=== PATIENT | female | born 1960 | race Caucasian/White ===

== ENCOUNTER 2024-12-25 05:07 | Inpatient (IN) ==
[2024-12-25] MEDS ORDERED: IOPAMIDOL 100 ML BOTTLE IV ONE (05:08)
[2024-12-25] MEDS: 0.9 % SODIUM CHLORIDE 1,000 ML IV ONE (06:04)
[2024-12-25] MEDS: KETOROLAC 30 MG/ML VIAL IV ONE (06:05)
[2024-12-25] MEDS: ONDANSETRON 4 MG/2 ML VIAL IV ONE (06:05)
[2024-12-25 06:08] LABS: Basophils # (Auto) 0.03 K/mcL (0.00-0.30); Basophils % (Auto) 0.4 % (0.0-2.0); Eosinophils # (Auto) 0.19 K/mcL (0.00-0.70); Eosinophils % (Auto) 2.7 % (0.0-7.0); Hematocrit 43.9 % (34.1-44.9); Hemoglobin 14.5 g/dL (11.2-15.7); Lymphocytes # (Auto) 2.13 K/mcL (1.50-4.80); Lymphocytes % (Auto) 30.4 % (15.5-49.0); Mean Corpuscular HGB Conc 33.0 g/dL (31.0-36.0); Monocytes # (Auto) 1.00 K/mcL (0.10-0.90); Monocytes % (Auto) 14.3 % (1.0-12.0); Neutrophils % (Auto) 51.9 % (38.0-78.0); Platelet Count 295 K/mcL (140-440); RBC 4.40 M/mcL (3.59-5.38); WBC 7.0 K/mcL (4.5-11.0)
[2024-12-25 06:18] LABS: ALT/SGPT 19 U/L (<40); AST/SGOT 24 U/L (<32); Albumin 3.8 gm/dL (3.2-5.2); Albumin/Globulin Ratio 1.6 (1.0-2.3); Alkaline Phosphatase 68 U/L (39-117); Anion Gap 11.0 (8.0-16.0); Bilirubin,Total 0.5 mg/dL (0.1-1.0); Blood Urea Nitrogen 12 mg/dL (8-23); Calcium 9.1 mg/dL (8.6-10.4); Carbon Dioxide 26 mmol/L (22-30); Chloride 105 mmol/L (96-108); Globulin 2.4 gm/dL (2.2-3.7); Glucose 107 mg/dL (70-105); Potassium 3.7 mmol/L (3.3-5.1); Sodium 142 mmol/L (133-145)
[2024-12-25 06:53] LABS: Bacteria,Urine Mod /hpf (0); Bilirubin,Urine Negative (Negative); Color,Urine Yellow; Glucose,Urine (UA) Negative (Negative); Ketones,Urine 15 mg/dL (Negative); Leukocyte Esterase,Urine Small /uL (Negative); Mucus,Urine Few /hpf; PH,Urine 6.0 (5.0-9.0); Protein,Urine 30 mg/dL (Negative); Specific Gravity,Urine 1.025 (1.000-1.035); Urobilinogen,Urine Normal
[2024-12-25] MEDS ORDERED: ACETAMINOPHEN 325 MG TABLET PO PRN (07:35)
[2024-12-25] MEDS: LACTATED RINGERS 1,000 ML IV SCH ×2 (08:36→17:26)
[2024-12-25 08:56] LABS: INR 1.0 (0.9-1.1); Prothrombin Time 13.4 sec (11.9-14.5)
[2024-12-25] MEDS ORDERED: ROPIVACAINE HCL/PF 30 ML VIAL IJ ONE (13:42)
[2024-12-25] MEDS ORDERED: PROPOFOL 200 MG/20 ML VIAL IV ONE (14:19)
[2024-12-25] MEDS ORDERED: LIDOCAINE 2% PF 5 ML VIAL ONE (14:20)
[2024-12-25] MEDS ORDERED: MIDAZOLAM 2 MG/2 ML VIAL ONE (14:20)
[2024-12-25] MEDS ORDERED: fentaNYL 100 MCG/2 ML VIAL ONE (14:20)
[2024-12-25] MEDS ORDERED: DEXAMETHASONE 10 MG/ML VIAL ONE (14:20)
[2024-12-25] MEDS ORDERED: ROCURONIUM 10 MG/ML ML IV ONE (14:20)
[2024-12-25] MEDS ORDERED: ONDANSETRON 4 MG/2 ML VIAL ONE (14:20)
[2024-12-25] MEDS: CEFEPIME 2 GM VIAL IV ONE (14:46)
[2024-12-25] MEDS ORDERED: SUGAMMADEX SODIUM 200 MG/2 ML VIAL IV ONE (16:03)
[2024-12-25] MEDS ORDERED: fentaNYL 100 MCG/2 ML VIAL IV PRN (16:21)
[2024-12-25] MEDS ORDERED: IPRATROPIUM/ALBUTEROL 3 ML AMPUL.NEB NEB PRN (16:21)
[2024-12-25] MEDS ORDERED: DROPERIDOL 5 MG/2 ML VIAL IV PRN (16:21)
[2024-12-25] MEDS: KETOROLAC 30 MG/ML VIAL IV PRN (16:55)
[2024-12-25] MEDS: HYDROmorphone 0.5 MG/0.5 ML SYRINGE IV PRN (16:55)
[2024-12-25] MEDS: METOCLOPRAMIDE 10 MG/2 ML VIAL IV SCH (17:40)
[2024-12-25] MEDS: ACETAMINOPHEN 1,000 MG/100 ML BAG IV SCH (17:40)
[2024-12-25] MEDS: metroNIDAZOLE 500 MG/100 ML BAG IV SCH (18:29)
[2024-12-25] MEDS: CEFEPIME 2 GM VIAL IV SCH (23:23)
[2024-12-26] MEDS: HYDROmorphone 0.5 MG/0.5 ML SYRINGE IV PRN (05:51)
[2024-12-26 06:08] LABS: Basophils # (Auto) 0.02 K/mcL (0.00-0.30); Basophils % (Auto) 0.2 % (0.0-2.0); Eosinophils # (Auto) 0.04 K/mcL (0.00-0.70); Eosinophils % (Auto) 0.3 % (0.0-7.0); Hematocrit 37.0 % (34.1-44.9); Hemoglobin 12.0 g/dL (11.2-15.7); Lymphocytes # (Auto) 1.64 K/mcL (1.50-4.80); Lymphocytes % (Auto) 12.5 % (15.5-49.0); Mean Corpuscular HGB Conc 32.4 g/dL (31.0-36.0); Monocytes # (Auto) 1.02 K/mcL (0.10-0.90); Monocytes % (Auto) 7.8 % (1.0-12.0); Neutrophils % (Auto) 79.0 % (38.0-78.0); Platelet Count 242 K/mcL (140-440); RBC 3.64 M/mcL (3.59-5.38); WBC 13.1 K/mcL (4.5-11.0)
[2024-12-26 06:27] LABS: ALT/SGPT 27 U/L (<40); AST/SGOT 43 U/L (<32); Albumin 3.1 gm/dL (3.2-5.2); Albumin/Globulin Ratio 1.7 (1.0-2.3); Alkaline Phosphatase 71 U/L (39-117); Anion Gap 11.0 (8.0-16.0); Bilirubin,Direct 0.2 mg/dL (<0.3); Bilirubin,Total 0.5 mg/dL (0.1-1.0); Blood Urea Nitrogen 10 mg/dL (8-23); Calcium 8.1 mg/dL (8.6-10.4); Carbon Dioxide 23 mmol/L (22-30); Chloride 106 mmol/L (96-108); Globulin 1.8 gm/dL (2.2-3.7); Glucose 71 mg/dL (70-105); Phosphorous 3.3 mg/dL (2.5-4.5); Potassium 3.5 mmol/L (3.3-5.1); Sodium 140 mmol/L (133-145); Triglycerides 70 mg/dL (<150); Uric Acid 3.5 mg/dL (2.5-8.0)
[2024-12-26] MEDS: ONDANSETRON 4 MG/2 ML VIAL IV PRN (19:42)
[2024-12-26] MEDS: BENZOCAINE ONE 20% 1 SPRAY TOPICAL PRN (20:13)
[2024-12-27 06:09] LABS: ALT/SGPT 74 U/L (<40); AST/SGOT 96 U/L (<32); Albumin 3.2 gm/dL (3.2-5.2); Albumin/Globulin Ratio 1.5 (1.0-2.3); Alkaline Phosphatase 115 U/L (39-117); Anion Gap 15.0 (8.0-16.0); Bilirubin,Direct 0.2 mg/dL (<0.3); Bilirubin,Total 0.5 mg/dL (0.1-1.0); Blood Urea Nitrogen 8 mg/dL (8-23); Calcium 8.5 mg/dL (8.6-10.4); Carbon Dioxide 23 mmol/L (22-30); Chloride 102 mmol/L (96-108); Globulin 2.1 gm/dL (2.2-3.7); Glucose 61 mg/dL (70-105); Phosphorous 2.6 mg/dL (2.5-4.5); Potassium 3.0 mmol/L (3.3-5.1); Sodium 140 mmol/L (133-145); Triglycerides 72 mg/dL (<150); Uric Acid 3.9 mg/dL (2.5-8.0)
[2024-12-27 08:06] LABS: Basophils # (Auto) 0.03 K/mcL (0.00-0.30); Basophils % (Auto) 0.3 % (0.0-2.0); Eosinophils # (Auto) 0.35 K/mcL (0.00-0.70); Eosinophils % (Auto) 3.2 % (0.0-7.0); Hematocrit 39.1 % (34.1-44.9); Hemoglobin 12.6 g/dL (11.2-15.7); Lymphocytes # (Auto) 1.44 K/mcL (1.50-4.80); Lymphocytes % (Auto) 13.1 % (15.5-49.0); Mean Corpuscular HGB Conc 32.2 g/dL (31.0-36.0); Monocytes # (Auto) 1.04 K/mcL (0.10-0.90); Monocytes % (Auto) 9.5 % (1.0-12.0); Neutrophils % (Auto) 73.4 % (38.0-78.0); Platelet Count 243 K/mcL (140-440); RBC 3.85 M/mcL (3.59-5.38); WBC 11.0 K/mcL (4.5-11.0)
[2024-12-27] MEDS: POTASSIUM CHLORIDE 40 MEQ in DEXTROSE 5% IN WATER 500 ML IV ONE (19:16)
[2024-12-27] MEDS: POTASSIUM CHLORIDE 20 MEQ/10 ML VIAL IV ONE (19:59)
[2024-12-28] MEDS: POTASSIUM CHLORIDE 40 MEQ in DEXTROSE 5% IN WATER 500 ML IV ONE (00:53)
[2024-12-28] MEDS: POTASSIUM CHLORIDE 20 MEQ/10 ML VIAL IV ONE (01:22)
[2024-12-28 05:53] LABS: Basophils # (Auto) 0.02 K/mcL (0.00-0.30); Basophils % (Auto) 0.2 % (0.0-2.0); Eosinophils # (Auto) 0.38 K/mcL (0.00-0.70); Eosinophils % (Auto) 3.7 % (0.0-7.0); Hematocrit 37.3 % (34.1-44.9); Hemoglobin 12.1 g/dL (11.2-15.7); Lymphocytes # (Auto) 1.42 K/mcL (1.50-4.80); Lymphocytes % (Auto) 13.8 % (15.5-49.0); Mean Corpuscular HGB Conc 32.4 g/dL (31.0-36.0); Monocytes # (Auto) 1.00 K/mcL (0.10-0.90); Monocytes % (Auto) 9.7 % (1.0-12.0); Neutrophils % (Auto) 72.4 % (38.0-78.0); Platelet Count 283 K/mcL (140-440); RBC 3.65 M/mcL (3.59-5.38); WBC 10.3 K/mcL (4.5-11.0)
[2024-12-28 06:16] LABS: ALT/SGPT 50 U/L (<40); AST/SGOT 44 U/L (<32); Albumin 3.0 gm/dL (3.2-5.2); Albumin/Globulin Ratio 1.4 (1.0-2.3); Alkaline Phosphatase 102 U/L (39-117); Anion Gap 10.0 (8.0-16.0); Bilirubin,Direct 0.2 mg/dL (<0.3); Bilirubin,Total 0.4 mg/dL (0.1-1.0); Blood Urea Nitrogen 6 mg/dL (8-23); Calcium 8.3 mg/dL (8.6-10.4); Carbon Dioxide 25 mmol/L (22-30); Chloride 100 mmol/L (96-108); Globulin 2.1 gm/dL (2.2-3.7); Glucose 180 mg/dL (70-105); Phosphorous 1.1 mg/dL (2.5-4.5); Potassium 3.3 mmol/L (3.3-5.1); Sodium 135 mmol/L (133-145); Triglycerides 77 mg/dL (<150); Uric Acid 4.3 mg/dL (2.5-8.0)
[2024-12-28] MEDS ORDERED: HYDROCORTISONE CRM 1% TUBE 30GM TOPICAL PRN (17:42)
[2024-12-28] MEDS: POTASSIUM PHOSPHATE 66 MEQ/15 ML VIAL IV ONE ×2 (19:15→20:06)
[2024-12-28] MEDS: POTASSIUM PHOSPHATE 40 MEQ in DEXTROSE 5% IN WATER 500 ML IV SCH (19:27)
[2024-12-29 06:06] LABS: Basophils # (Auto) 0.03 K/mcL (0.00-0.30); Basophils % (Auto) 0.5 % (0.0-2.0); Eosinophils # (Auto) 0.36 K/mcL (0.00-0.70); Eosinophils % (Auto) 6.1 % (0.0-7.0); Hematocrit 29.3 % (34.1-44.9); Hemoglobin 9.7 g/dL (11.2-15.7); Lymphocytes # (Auto) 1.04 K/mcL (1.50-4.80); Lymphocytes % (Auto) 17.5 % (15.5-49.0); Mean Corpuscular HGB Conc 33.1 g/dL (31.0-36.0); Monocytes # (Auto) 0.74 K/mcL (0.10-0.90); Monocytes % (Auto) 12.5 % (1.0-12.0); Neutrophils % (Auto) 63.2 % (38.0-78.0); Platelet Count 242 K/mcL (140-440); RBC 2.90 M/mcL (3.59-5.38); WBC 5.9 K/mcL (4.5-11.0)
[2024-12-29 06:28] LABS: ALT/SGPT 29 U/L (<40); AST/SGOT 28 U/L (<32); Albumin 2.3 gm/dL (3.2-5.2); Albumin/Globulin Ratio 1.8 (1.0-2.3); Alkaline Phosphatase 69 U/L (39-117); Anion Gap 11.0 (8.0-16.0); Bilirubin,Direct < 0.2 mg/dL (0-0.3); Bilirubin,Total 0.3 mg/dL (0.1-1.0); Blood Urea Nitrogen 2 mg/dL (8-23); Calcium 6.1 mg/dL (8.6-10.4); Carbon Dioxide 23 mmol/L (22-30); Chloride 105 mmol/L (96-108); Globulin 1.3 gm/dL (2.2-3.7); Glucose 107 mg/dL (70-105); Phosphorous 5.7 mg/dL (2.5-4.5); Potassium 2.9 mmol/L (3.3-5.1); Sodium 139 mmol/L (133-145); Triglycerides 61 mg/dL (<150); Uric Acid 2.5 mg/dL (2.5-8.0)
[2024-12-29] MEDS: POTASSIUM CHLORIDE 20 MEQ TABLET PO SCH (18:25)
[2024-12-29] MEDS: MAGNESIUM SULFATE 2 GM/50 ML BAG IV ONE (20:23)
[2024-12-29] MEDS: POTASSIUM CHLORIDE 40 MEQ in DEXTROSE 5% IN WATER 500 ML IV SCH (20:23)
[2024-12-29] MEDS: MAGNESIUM SULFATE 4 GM/100 ML BAG IV SCH (20:23)
[2024-12-29] MEDS: POTASSIUM CHLORIDE 20 MEQ/10 ML VIAL IV ONE (20:25)
[2024-12-30] MEDS: POTASSIUM CHLORIDE 20 MEQ/10 ML VIAL IV ONE (00:25)
[2024-12-30 07:43] LABS: Basophils # (Auto) 0.03 K/mcL (0.00-0.30); Basophils % (Auto) 0.4 % (0.0-2.0); Eosinophils # (Auto) 0.46 K/mcL (0.00-0.70); Eosinophils % (Auto) 6.3 % (0.0-7.0); Hematocrit 39.5 % (34.1-44.9); Hemoglobin 12.5 g/dL (11.2-15.7); Lymphocytes # (Auto) 1.81 K/mcL (1.50-4.80); Lymphocytes % (Auto) 24.6 % (15.5-49.0); Mean Corpuscular HGB Conc 31.6 g/dL (31.0-36.0); Monocytes # (Auto) 1.07 K/mcL (0.10-0.90); Monocytes % (Auto) 14.6 % (1.0-12.0); Neutrophils % (Auto) 53.8 % (38.0-78.0); Platelet Count 338 K/mcL (140-440); RBC 3.79 M/mcL (3.59-5.38); WBC 7.4 K/mcL (4.5-11.0)
[2024-12-30 07:45] LABS: ALT/SGPT 46 U/L (<40); AST/SGOT 52 U/L (<32); Albumin 3.1 gm/dL (3.2-5.2); Albumin/Globulin Ratio 1.3 (1.0-2.3); Alkaline Phosphatase 99 U/L (39-117); Anion Gap 9.0 (8.0-16.0); Bilirubin,Direct < 0.2 mg/dL (0-0.3); Bilirubin,Total 0.4 mg/dL (0.1-1.0); Blood Urea Nitrogen 2 mg/dL (8-23); Calcium 8.4 mg/dL (8.6-10.4); Carbon Dioxide 23 mmol/L (22-30); Chloride 104 mmol/L (96-108); Globulin 2.3 gm/dL (2.2-3.7); Glucose 126 mg/dL (70-105); Phosphorous 2.2 mg/dL (2.5-4.5); Potassium 4.4 mmol/L (3.3-5.1); Sodium 136 mmol/L (133-145); Triglycerides 78 mg/dL (<150); Uric Acid 2.3 mg/dL (2.5-8.0)
[2024-12-30] MEDS: OLMESARTAN MEDOXOMIL 20 MG TABLET PO SCH (14:13)
[2024-12-30] MEDS: METOPROLOL SUCCINATE 25 MG TAB.XL.24H PO SCH (14:13)
[2024-12-31 07:49] VITALS: O2SAT 100
[2024-12-31] MEDS: CITALOPRAM 20 MG TABLET PO SCH (08:05)
[2024-12-31] MEDS: ESTRADIOL 1 MG TABLET PO SCH (08:05)
[2024-12-31 13:24] VITALS: TEMP 98.1
== END 2024-12-31 14:48 | disposition home or self-care (01) | DRG 331 ==
LOC: ED 05:07 → MEDSUR 09:26
PROVIDERS: ADMIT Family Medicine Adult Medicine; ATTEND Family Medicine Adult Medicine